=== PATIENT | female | born 1960 | race Caucasian/White ===

== ENCOUNTER 2018-02-24 10:53 | Emergency (ER) | payer MEDICAID ==
[~2018-02-24] VITALS: Ht 170.2 cm; Wt 71.0 kg
[~2018-02-24 10:53] MED LIST: HYDR-3964 PO; ONDA4TAB11 PO; PANT-47 PO
[2018-02-24] MEDS ORDERED: ondansetron 4mg rapidly disintigrating tab PO ONE (11:15)
[2018-02-24 11:16] VITALS: BP 154/84
[2018-02-24] MEDS ORDERED: ONDA8TAB6 PO (11:17)
[2018-02-24 11:48] LABS: ALANINE AMINOTRANSFERASE 25 U/L (12-78); ALBUMIN 3.7 G/DL (3.4-5.0); ALKALINE PHOSPHATASE 114 IU/L (46-116); ANION GAP 8 (8-16); ASPARTATE AMINO TRANSFERASE 21 U/L (10-37); BILIRUBIN,TOTAL 0.7 MG/DL (0.1-1.0); BLOOD UREA NITROGEN 13 MG/DL (7-18); BUN/CREATININE RATIO 12.5 (6.6-38.0); CALCIUM 8.6 MG/DL (8.5-10.1); CHLORIDE 103 MMOL/L (99-107); CREATININE 1.04 MG/DL (0.40-0.90); GLUCOSE 117 MG/DL (70-104); LIPASE 295 U/L (73-393); POTASSIUM 4.1 MMOL/L (3.5-5.1); SODIUM 140 MMOL/L (135-145); TOTAL CARBON DIOXIDE 28.9 MMOL/L (24-32); TOTAL PROTEIN 7.3 G/DL (6.4-8.2); eGFR 54 ML/MIN
[2018-02-24 11:53] LABS: BASOPHILS % (AUTO) 0.4 % (0-1); EOSINOPHILS # (AUTO) 0.2 X10'3 (0-0.9); EOSINOPHILS % (AUTO) 3.3 % (0-6); HEMATOCRIT 40.3 % (35.0-45.0); HEMOGLOBIN 13.4 g/dl (12.0-16.0); LYMPHOCYTES # (AUTO) 2.2 X10'3 (1.1-4.8); LYMPHOCYTES % (AUTO) 35.4 % (21-51); MEAN CORPUSCULAR HEMOGLOBIN 29.9 PG (27.0-31.0); MEAN CORPUSCULAR HGB CONC 33.2 % (33.0-36.5); MEAN PLATELET VOLUME 7.3 FL (7.4-10.4); MONOCYTES # (AUTO) 0.3 X10'3 (0-0.9); MONOCYTES % (AUTO) 4.5 % (2-12); NEUTROPHILS # (AUTO) 3.5 X10'3 (1.8-7.7); NEUTROPHILS % (AUTO) 56.4 % (42-75); PLATELET COUNT 134 X10'3 (140-440); RED BLOOD COUNT 4.48 X10'6 (4.20-5.60); RED CELL DISTRIBUTION WIDTH 15.4 % (11.5-14.5); WHITE BLOOD COUNT 6.2 X10'3 (4.5-11.0)
== END 2018-02-24 12:15 | disposition home or self-care (01) ==
LOC: ER 10:53
DX: R10.13 Epigastric pain (principal); I10 Essential (primary) hypertension; J44.9 Chronic obstructive pulmonary disease, unspecified; Z86.73 Personal history of transient ischemic attack (TIA), and cerebral infarction without residual deficits; Z90.49 Acquired absence of other specified parts of digestive tract; Z88.0 Allergy status to penicillin; Z79.899 Other long term (current) drug therapy
CPT/HCPCS: 36415; 80053; 83690; 85025; 99284

== ENCOUNTER 2019-09-09 11:58 | Emergency (ER) | payer MEDICAID ==
[~2019-09-09] VITALS: Ht 185.4 cm; Wt 103.2 kg
[~2019-09-09 11:58] MED LIST changes: +APIX5TAB3 PO; +ASPI-1130 PO; +ATOR40TA72 PO; +FOLI1TAB16 PO; -HYDR-3964 PO; +MULT-1179 PO; -ONDA4TAB11 PO; -PANT-47 PO; +PANT40TA4 PO; +thiamine tablet PO
[2019-09-09] MEDS ORDERED: famotidine/PF 10 mg/ml inj IV ONE (12:25)
[2019-09-09] MEDS ORDERED: pantoprazole 40 MG vial IV ONE (12:25)
[2019-09-09] MEDS ORDERED: normal saline 1000ML IV soln IVB ONE (12:25)
[2019-09-09] MEDS ORDERED: ondansetron/PF 4mg/2ml inj IV ONE (12:25)
[2019-09-09] MEDS ORDERED: ipratropium/albuterol 3ml nebule NEB ONE (12:30)
--- NOTE | 2019-09-09 13:03 | NUR ---
IV started by EMS is not patent, attempted new IV access unsuccessfully, [facility] but unable to start IV access. Asked another staff nurse to attempt IV access.
[2019-09-09 13:12] LABS: BASOPHILS % (AUTO) 0.3 % (0-1); EOSINOPHILS # (AUTO) 0.2 X10'3 (0-0.9); EOSINOPHILS % (AUTO) 2.1 % (0-6); LYMPHOCYTES # (AUTO) 2.7 X10'3 (1.1-4.8); LYMPHOCYTES % (AUTO) 25.3 % (21-51); MEAN CORPUSCULAR HEMOGLOBIN 31.1 PG (27.0-31.0); MEAN CORPUSCULAR HGB CONC 34.9 g/dL (33.0-36.5); MEAN CORPUSCULAR VOLUME 89.1 FL (78-98); MEAN PLATELET VOLUME 6.8 FL (7.4-10.4); MONOCYTES # (AUTO) 0.6 X10'3 (0-0.9); MONOCYTES % (AUTO) 5.7 % (2-12); NEUTROPHILS # (AUTO) 7.2 X10'3 (1.8-7.7); NEUTROPHILS % (AUTO) 66.6 % (42-75); PLATELET COUNT 303 X10'3 (140-440); RED BLOOD COUNT 4.49 X10'6 (4.20-5.60); RED CELL DISTRIBUTION WIDTH 13.4 % (11.5-14.5); WHITE BLOOD COUNT 10.8 X10'3 (4.5-11.0)
[2019-09-09 13:26] LABS: ALANINE AMINOTRANSFERASE 28 U/L (12-78); ALBUMIN 3.6 G/DL (3.4-5.0); ALBUMIN/GLOBULIN RATIO 0.9 (1.1-1.5); ALKALINE PHOSPHATASE 113 IU/L (46-116); ANION GAP 8 (8-16); ASPARTATE AMINO TRANSFERASE 20 U/L (10-37); BILIRUBIN,TOTAL 0.9 MG/DL (0.1-1.0); BLOOD UREA NITROGEN 8 MG/DL (7-18); BUN/CREATININE RATIO 8.5 (6.6-38.0); CALCIUM 9.1 MG/DL (8.5-10.1); CHLORIDE 105 MMOL/L (99-107); CREATININE 0.94 MG/DL (0.40-0.90); GLUCOSE 93 MG/DL (70-104); LIPASE 240 U/L (73-393); POTASSIUM 3.9 MMOL/L (3.5-5.1); SODIUM 141 MMOL/L (135-145); TOTAL CARBON DIOXIDE 28.5 MMOL/L (24-32); TOTAL PROTEIN 7.6 G/DL (6.4-8.2); eGFR 61 ML/MIN
[2019-09-09] MEDS ORDERED: PRED20TA PO (14:23)
--- NOTE | 2019-09-09 14:23 | NUR ---
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
[2019-09-09] MEDS ORDERED: predniSONE 20 mg tablet PO STA (14:42)
[2019-09-09 14:48] LABS: CLARITY,URINE SLIGHTLY CLOUDY (Clear); COLOR,URINE STRAW (Yellow); GLUCOSE, URINE NEGATIVE (Neg); KETONES,URINE NEGATIVE (Neg); LEUKOCYTE ESTERASE ,URINE NEGATIVE (Neg); NITRITES, URINE NEGATIVE (Neg); OCCULT BLOOD,URINE NEGATIVE (Neg); PH,URINE 5.5 (4.8-8.0); PROTEIN,URINE NEGATIVE (Neg); UROBILINOGEN,URINE 0.2 E.U/dL (0.2-1.0)
--- NOTE | 2019-09-09 14:48 | NUR ---
MEDICAL RECORDS RELEASE FAXED TO [facility]
[2019-09-09 14:50] LABS: UA COLLECTION TYPE CLN CATCH MIDSTREAM
[2019-09-09 14:54] LABS: BACTERIA,URINE 1+ /HPF (Neg); MUCUS STRANDS FEW /LPF (Neg); RBC,URINE 0-2 /HPF (0-2); SQUAMOUS EPITHELIAL CELL,UR MANY /LPF (FEW); WBC,URINE 0-4 /HPF (0-4)
[2019-09-09 14:56] VITALS: BP 145/74
== END 2019-09-09 15:05 | disposition home or self-care (01) ==
LOC: ER 11:58
DX: J45.901 Unspecified asthma with (acute) exacerbation (principal); R10.13 Epigastric pain; I10 Essential (primary) hypertension; Z86.73 Personal history of transient ischemic attack (TIA), and cerebral infarction without residual deficits; Z90.49 Acquired absence of other specified parts of digestive tract; Z88.0 Allergy status to penicillin; Z79.82 Long term (current) use of aspirin; Z79.899 Other long term (current) drug therapy
CPT/HCPCS: 36415; 71045; 80053; 81001; 83690; 85025; 94010; 94640; 96374; 96375; 99284; C9113; J2405; J3490; J7030; J7512; 94760